=== PATIENT | female | born 2005 | race Caucasian/White ===

== ENCOUNTER 2025-06-29 06:23 | Outpatient (REF) | payer BC, SELFPAY ==
--- OUTSIDE RECORDS SUMMARY | 2015-05-02 04:31 | XMS_ITS | Continuity of Care Document ---
Author Organization [facility] Address [address] [place] [address] [address] [place] [address] Phone Care Team Providers Care Heel Scorer Name Role Phone Audrey Ruiz PT Unavailable Unavailable Procedures Procedure Date Impact Testing No Charge Advance Directives Directive Yes / No Effective Date File Name No Information Encounters Encounter Description Practice Location Reason(s) For Visit Diagnoses Date Provider Providers Copied on Encounter [facility], [address] [place] [address], [id number], tel:[phone] [facility] No Information Joseph Ventura. . [facility], [address] [place], [place] [address] [address] [place] [address], [id number], tel:[phone] [facility] No Information Joseph Ventura. . Referring Provider: Physician Screen. Family History Family Member Type Diagnosis Age At Onset No Information Payers Payer name Insurance type Covered green party ID Authoriza tion(s) No Information Social History Type Description Quantity Date Captured Comments Sex Female Smoking Status No Information Chief Complaint And Reason For Visit No Information Reason For Referral Reason For Referral No Information History Of Present Illness Encounter Date Complaint History Of Prese nt Illness No Information Functional Status Date Functional Assessmen t No Information Instructions Date Instruction Additional Infor mation No Information Assessments Type Assessment Date No Information Patient Care Teams Name Effective Dates (start - stop) Status Members No Information
--- NOTE | ~2025-06-29 | US_ITS ---
EXAMINATION: US PELVIS CLINICAL INFORMATION: Amenorrhea COMPARISON: None available. TECHNIQUE: Ultrasound of the pelvis is performed using both transabdominal and transvaginal transducers along with Doppler. Transvaginal imaging is performed due to inadequate visualization transabdominally. FINDINGS: Uterus: The uterus is anteverted and measures 6.1 x 2.3 x 4.1 cm. The double wall endometrial thickness is normal measuring 1.7 mm. No endometrial fluid or mass. The uterus is smooth in contour and has normal myometrial echogenicity. No visible fibroid. Adnexa: Both ovaries are visualized. There is normal color flow to the adnexa. There is no ovarian torsion. There is no pelvic ascites or fluid collection. Prominent pelvic vessels are questionable for pelvic varices/pelvic congestion. Right ovary measures 3.3 x 1.7 x 2.2 cm and is normal-appearing. Left ovary is seen transabdominally only, measures 2.4 x 1.4 x 1.8 cm, and is normal-appearing. US/US pelvic and transvaginal IMPRESSION: Question pelvic congestion. Otherwise unremarkable exam. Electronically signed by: Monse Feldman MD 06/29/2025 11:27 AM EDT
--- OUTSIDE RECORDS SUMMARY | 2025-06-29 06:25 | XMS_ITS | Clinical Summary ---
Author Organization [facility] Address [address] [place] [address] Care Team Providers Care Head Turbine Operator Name Role Phone Carroll Veliz MD Primary Care Provider Allergies No known active allergies Medications ondansetron (ZOFRAN) 4 mg tablet Take 1 tablet (4 mg total) by mouth every 8 (eight) hours as needed for Nausea. 20 tablet 2 Active Drospirenone 4 MG Oral Tab Take 1 tablet by mouth daily. 5 11/17/19 26 Active minocycline 100 MG Oral Cap Take 100 mg by mouth. 4 Active spironolactone 50 MG Oral Tab Take 50 mg by mouth 2 (two) times daily. 5 Active spironolactone 25 MG Oral Tab Take 25 mg by mouth daily. 5 Active Tretinoin 0.05 % External Cream 5 Active SUMAtriptan (IMITREX) 25 MG Oral TabIndications:M igraine with aura and without status migrainosus, not intractable Take 1 tablet (25 mg total) by mouth every 2 (two) hours as needed for Migraine. MAX daily amount: 2 tablets 9 tablet 2 5 Active NORTRIPTYLINE 10 MG Oral CapIndications:M igraine with aura and without status migrainosus, not intractable TAKE 2 CAPSULES NIGHTLY 180 capsule 5 Active Active Problems Problem Noted Date Diagnosed Date Nocturnal enuresis 04/02/2011 Resolved Problems Problem Noted Date Diagnosed Date Resolved Date Chronic constipation 04/02/2011 017 Chronic otitis media 017 Overview (12/30/2012): b/l Asthma 05/09/2014 Speech delay 03/06/2017 Internal tibial torsion /0 02/2017 Premature 03/06/2017 Encounters Date Type Department Care Team Description 05/16/2025 Refill [facility] [place]el [address] [place] [address] [address], [place] [id number] Jo Ann Brown NP Refill Request 05/13/2025 Telephone [facility] Patel [address] [place] [address] [address], [place] [id number] Jo Ann Brown OPTICAL LAB TECHNICIAN Refill Request (Nortriptylline ) from Last 3 Months Immunizations Immunization Administration Dates Next Due DTAP 02/01/2009, 6,2004,2003,2004 Flucelvax 0.5 ml Quad PRSV F ree 6m+ ([id number]) 09/19/2021 HEP A,Ped/Adol,(2 Dose) 03/28/2019,11/13/2015, HEP B 06/12/2005,2004,2004 HIB 06/12/2005,2004,2004 HPV (Gardasil) 11/13/2015,07/17/2015,05/15/2015 Hpv Virus Vaccine 9 April Im 11/13/2015,07/17/2015 ,05/15/2015 IPV 02/01/2009, 5,2004,2003 Influenza Vaccine Refused 10/03/2019(Def erred: +Patient Refuses Z28.21) MMR 02/01/2009, 9,06/12/2005,2004 Meningococcal-Menactra 02/14/2021,05/15/2015 TDAP 02/15/2025,05/15/2015 Tb Intradermal Test 09/19/2021 Varicella 05/15/2015,04/02/2007 Family History Medical History Relation Comments Asthma Brother 2 Chronic Sinusitis Mother MS Other 1 Crohn's Other 2 Osteoporosis Other 3 Diabetes Other 4 Cardiac Disease Other 5 Relation Status Comments Brother 1 Alive Brother 2 Father Alive Mother Alive Other 1 Other 2 Other 3 Other 4 Other 5 Social History Tobacco Use Types Packs/Day Years Used Date Smoking Tobacco: Never Smokeless Tobacco: Never Tobacco Cessation:Counseling Given: Not Answered Alcohol Use Standard Drinks/Week Comments No 0 (1 standard drink = 0.6 oz pur e alcohol) PHQ-2 Answer Date Recorded PHQ-2 SCORE 0 02/15/2025 Comments No Sex and Gender Information Value Date Recorded Sex Assigned at Female 07/16/2020 12:40 PM CUT FILE CLERK Legal Sex Female 5:00 PM CUT FILE CLERK Gender Identity Female 07/16/2020 12:40 PM CUT FILE CLERK Sexual Orientation Straight 03/25/2023 11 :06 AM CDT Last Filed Vital Signs Vital Sign Reading Time Taken Comments Blood Pressure 116/68 02/15/2025 9:42 AM CDT Pulse 84 02/15/2025 9:42 AM CDT Temperature 36.8 C (98.2 F) 07/16/2020 12:52 PM CUT FILE CLERK Respiratory Rate 20 07/16/2020 12:52 PM CUT FILE CLERK Oxygen Saturation 98% 02/15/2025 9:42 AM CDT Inhaled Oxygen Concentration - - Weight 49.1 kg (108 lb 3.2 oz) 02/15/2025 9:42 A M CDT Height 165.1 cm (5' 5 ) 02/15/2025 9:42 AM CDT Body Mass Index 18.01 02/15/2025 9:42 AM CDT Plan of Treatment Health Maintenance Due Date Last Done Comments Meningococcal B Vaccine (1 of 2 - Standard) 2020 Pap Smear,3 Years 2025 COVID-19 Vaccine ( - season) 2025 04/07/2022, 03/17/2022 Influenza Vaccine (#1) 2025 09/19/2021 Annual Depression Screen 02/15/2026 02/15/2025, 03/01 Annual Physical 02/15/2026 02/15/2025, 01/29, 01/29/2024, Additional history exists DTaP,Tdap,and Td Vaccines (8 - Td or Tdap) 02/15/2035 02/15/2025, 05/15/2015, 02/01/2009, Additional history exists RSV Vaccines: ; 60+ Years (1 - 1-dose 75+ series) 2079 Hepatitis B Vaccines Completed 06/12/2005, 2004, 2004 MMR Vaccines Completed 02/01/2009, 11/2008, 06/12/2005, Additional history exists Varicella Vaccines Completed 05/15/2015, 04/02/2007 HPV Vaccines Completed 11/13/2015, 10/29, 07/17/2015, Additional history exists Hepatitis A Vaccines Completed 03/28/2019, 11/13/2015, 05/15/2015 Meningococcal Vaccine Completed 02/14/2021, 015 Pneumococcal Vaccine: to 49yrs Aged Out No longer eligible based on patient's age to complete this topic Procedures Procedure Name Priority Date/Time Associated Diagnosis Comments PERIODIC PREVENTIVE MED EST PATIENT 18-39 YRS Routine 02/15/2025 9:59 AM CDT Routine general medical examination at a health care facility from Last 3 Months or Most Recently Relevant to Health Maintenance Insurance [phone] (Work) [address] [place] [phone] [facility] Care Teams Head Turbine Operator Relationship Specialty Start Date End Date Carroll Veliz MD [address] [place] [address] [place] [id number] PCP - General Family Medicine 02/14/21
== END 2025-06-29 06:24 | disposition home or self-care (01) ==
LOC: HO.UMASIMG 06:23
PROVIDERS: Visit Provider Nurse Practitioner Women's Health
DX: N92.1 Excessive and frequent menstruation with irregular cycle (principal)
CPT/HCPCS: 76830; 76856

== ENCOUNTER → 2025-06-29 10:30 | Outpatient (BNV) | payer BC, SELFPAY | PROVIDERS: Visit Provider Radiology Diagnostic Radiology | DX: N91.2 Amenorrhea, unspecified (principal) | CPT/HCPCS: 76830; 76856 ==